=== PATIENT | male | born 1995 | race Caucasian/White ===

== ENCOUNTER 2017-03-13 14:46 | Emergency (ER) | payer BC ==
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
== END 2017-03-13 15:48 | disposition home or self-care (01) ==
LOC: JP.ED 14:46
DX: G56.22 Lesion of ulnar nerve, left upper limb (principal); Z88.1 Allergy status to other antibiotic agents
CPT/HCPCS: 99283

== ENCOUNTER 2018-08-11 09:31 | Emergency (ER) | payer SELFPAY ==
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
== END 2018-08-11 12:17 | disposition home or self-care (01) ==
LOC: JP.ED 09:31
DX: Z77.098 Contact with and (suspected) exposure to other hazardous, chiefly nonmedicinal, chemicals (principal); Z88.1 Allergy status to other antibiotic agents; Z98.890 Other specified postprocedural states
CPT/HCPCS: 99282